=== PATIENT | male | born 1985 | race Caucasian/White ===

== ENCOUNTER 2020-01-08 10:41 | Inpatient (IN) | END 2020-01-08 10:47 | disposition home or self-care (01) | DRG 392 | LOC: ED 10:41 → MEDSURG A 10:45 | DX: R11.0 Nausea ==

== ENCOUNTER 2020-01-16 08:56 | Inpatient (IN) ==
[2020-01-23 14:25] LABS: PROCALCITONIN < 0.05 ng/mL (<0.05)
[2020-03-12] MEDS: CARDIZEM 125 MG in SODIUM CHLORIDE 100 ML IV SCH (15:23)
== END 2020-01-16 10:37 | disposition home or self-care (01) | DRG 392 ==
LOC: ED 08:56 → MEDSURG A 09:15 → UNDODISIN 09:20
DX: R11.0 Nausea

== ENCOUNTER 2020-05-06 11:00 | Inpatient (IN) ==
[2020-05-07 13:51] VITALS: BP 120/80; TEMP 98.6
[2020-05-07] MEDS: TYLENOL PO STA (14:01)
== END 2020-05-07 14:37 | disposition home or self-care (01) | DRG 392 ==
LOC: ED 11:00 → MEDSURG B 11:00 → OBSVTOIN 05-07 13:45
PROVIDERS: ADMIT Family Medicine; ATTEND Family Medicine
DX: R11.0 Nausea

== ENCOUNTER 2021-05-15 14:31 | Inpatient (IN) | END 2021-05-15 14:37 | disposition home or self-care (01) | DRG 392 | LOC: MEDSURG B 14:31 | DX: R11.0 Nausea ==

== ENCOUNTER 2021-06-18 12:54 | Inpatient (IN) | END 2021-06-18 12:59 | disposition home or self-care (01) | DRG 392 | LOC: MEDSURG B 12:54 | DX: R11.0 Nausea ==

== ENCOUNTER 2023-11-28 13:55 | Inpatient (IN) | END 2023-11-28 13:57 | disposition home or self-care (01) | DRG 999 | LOC: MEDSURG A 13:55 | DX: W19.XXXA Unspecified fall, initial encounter ==